=== PATIENT | female | born 1960 | race Caucasian/White ===

== ENCOUNTER → 2016-10-03 | Outpatient (CLI) | payer OTHER | LOC: RAD 14:20 | DX: R06.00 Dyspnea, unspecified (principal); R63.4 Abnormal weight loss; R06.02 Shortness of breath; R91.8 Other nonspecific abnormal finding of lung field ==

== ENCOUNTER → 2018-05-06 | Outpatient (CLI) | payer OTHER | LOC: MRI 09:59 | DX: D32.9 Benign neoplasm of meninges, unspecified (principal) ==